=== PATIENT | male | born 1965 | race American Indian/Alaskan Native ===

== ENCOUNTER 2017-05-18 07:54 | Day surgery (SDC) | payer OTHER ==
--- NOTE | 2017-05-18 09:27 | Anesthesia Day of Surgery ---
Anesthesia Day of Surgery - Day of Surgery Patient Examined: Yes Patient H&P Reviewed: Yes Patient is NPO: Yes
--- NOTE | 2017-05-18 09:27 | Anesthesia Consultation ---
Anesthesia Consult and Med Hx Date of service: 05/18/17 - Airway Anesthetic Teeth Evaluation: Good ROM Head & Neck: Adequate Mental/Hyoid Distance: Adequate Mallampati Class: Class II Intubation Access Assessment: Probably Good - Pulmonary Exam CTA: Yes - Cardiac Exam Cardiac Exam: RRR - Pre-Operative Health Status ASA Pre-Surgery Classification: ASA2 Proposed Anesthetic Plan: General - Pulmonary Hx Smoking: Yes (1 PPD X 20 YRS) Hx Sleep Apnea: No (JOSE PRE SCREEN HIGH RISK) - Cardiovascular System Hx Hypertension: No - Endocrine Hx Non-Insulin Dependent Diabetes: No - Hematic Hx Sickle Cell Disease: No (SC TRAIT ONLY) - Other Systems Hx Substance Use: Yes (MARIJUANA 2-3 X PER WEEK) Hx Cancer: No
[2017-05-18] MEDS ORDERED: NACL BACTERIOSTATIC INFILTRATI ONE (09:43)
[2017-05-18] MEDS ORDERED: VERSED IV NR (10:00)
[2017-05-18] MEDS ORDERED: NEO SYNEPHRINE/NS Syringe(OR USE) IV ONE (10:00)
[2017-05-18] MEDS ORDERED: NACL 0.9% 1000 ML 1,000 ML IV SCH (10:00)
[2017-05-18] MEDS ORDERED: PEPCID PO NR (10:00)
[2017-05-18 10:11] LABS: Hematocrit 40.3 % (35.5-45.6); Hemoglobin 13.6 gm/dl (11.8-15.2)
[2017-05-18] MEDS ORDERED: DILAUDID IV PRN (10:30)
[2017-05-18] MEDS ORDERED: ANCEF/STERILE WATER 2 GM/20 ML IV NR (11:00)
[2017-05-18] MEDS ORDERED: DIPRIVAN 10 MG/ML IV ONE (11:08)
[2017-05-18] MEDS ORDERED: XYLOCAINE MPF 2% ONE (11:08)
[2017-05-18] MEDS ORDERED: DILAUDID ONE (11:09)
[2017-05-18] MEDS ORDERED: DECADRON ONE (11:33)
[2017-05-18] MEDS ORDERED: NACL 0.9% 1000 ML 1,000 ML ONE (11:57)
--- NOTE | 2017-05-18 12:06 | Short Stay Summary ---
Short Stay Documentation Date of service: 05/18/17 - History H&P: obtained from office - Allergies and Medications Current Medications: Allergies TB SKIN TEST Allergy (Uncoded 05/11/17 17:38) Rash Home Medications Medication Instructions Recorded Confirmed Last Taken Type Oxycodone HCl/Acetaminophen 1 each PO Q6HR PRN 05/18/17 05/18/17 05/17/17 History [Percocet 10/325 mg] Sulfamethoxazole/Trimethoprim 1 each PO BID 05/18/17 05/18/17 05/17/17 History [Bactrim DS TAB] Tamsulosin [Flomax] 0.4 mg PO QDAY 05/18/17 05/18/17 05/17/17 History Active Medications Cefazolin Sodium (Ancef/Sterile Water 2 Gm/20 Ml) 2 gm IV PREOP NR Stop: 05/19/17 10:59 Famotidine (Pepcid) 20 mg PO PREOP NR Stop: 05/18/17 21:00 Last Admin: 05/18/17 09:48 Dose: 20 mg Hydromorphone HCl (Dilaudid) 0.5 mg IV Q10MIN PRN PRN Reason: Pain , Severe (7-10) Stop: 05/18/17 18:00 Sodium Chloride (Nacl 0.9% 1000 Ml) 1,000 mls @ 100 mls/hr IV DIRECT NORBERT Last Admin: 05/18/17 09:50 Dose: 100 mls/hr Midazolam HCl (Versed) 2 mg IV PREOP NR Stop: 05/18/17 23:59 Last Admin: 05/18/17 10:08 Dose: 2 mg - Brief post op/procedure progress note Date of procedure: 05/18/17 Pre-op diagnosis: hematuria left renal stone Post-op diagnosis: same Procedure: left eswl Anesthesia: GETA Findings: good vus Surgeon: AMANDA MARX Estimated blood loss: minimal Pathology: none Condition: stable - Hospital course Hospital course: [facility]pac[facility]ome - Disposition Condition at discharge: Good Disposition: DC-01 TO HOME OR SELFCARE Short Stay Discharge Plan Follow up with: PRIMARY CARE, [Primary Care Provider] - 7 Days
[2017-05-18] MEDS ORDERED: WATER FOR IRRIG STERILE IR ONE (12:14)
--- NOTE | 2017-05-18 13:31 | Post Operative Note ---
Date of procedure: 05/18/17 Pre-op diagnosis: hematuria left stone Post-op diagnosis: same Findings: good vis, lg lat and med lobe Procedure: left eswl cysto Anesthesia: ASTERA Surgeon: AMANDA MARX Estimated blood loss: minimal Pathology: none Condition: stable Disposition: PACU
[2017-05-18 14:32] VITALS: BP 178/68
--- NOTE | 2017-05-18 17:23 | Post Anesthesia Evaluation ---
- Post Anesthesia Evaluation Patient Participated: Yes Airway Patent: Yes Stable Respiratory Function: Yes Nausea/Vomiting: No Temp > 96.8F: Yes Pain Manageable: Yes Adequeate Hydration: Yes Anesthesia Complications: No
--- NOTE | 2017-05-22 02:06 | Operative Report ---
PREOPERATIVE DIAGNOSES: Left renal stone and hematuria. POSTOPERATIVE DIAGNOSES: Left renal stone and hematuria. PROCEDURE: 1. Left renal ESWL. 2. Left cystoscopy. SURGEON: Tuan Dave MD ANESTHESIA: General. SPECIMENS: None. ESTIMATED BLOOD LOSS: Minimal. COMPLICATIONS: None. FINDINGS: Good visualization. IMPLANTS: None. CLINICAL INDICATIONS: Counseled RCBA, antibiotics, SCDs, wanted to proceed, understanding the procedure, antibiotics, SCDs. DESCRIPTION OF PROCEDURE: The patient was transferred to OR suite in supine position, anesthesia begun, biplanar fluoroscopy was used to target the stone with an F2, but before this, a flexible cystoscope was assembled and passed this from the urethra. The flexible cystoscope demonstrated normal penile urethra, bulbar urethra, prostatic urethra, had large lateral lobes. Upon entering the bladder, there was a large median lobe, unable to clearly see the UOs. Cystoscopy with the flexible scope demonstrated no obvious tumors with the prostate limitations of large prostate in the bladder, but there is no obvious tumor on inspection. No tumors or lesions. At this point, the scope was withdrawn. The bladder was drained with an in and out catheter. At this point, the left stone was targeted with an F2. A total of 2500 shocks were delivered with intermittent repositioning done as necessary. At the end of the procedure, there was decreased density of the left stone and the patient was awakened and transferred to PACU in good and stable condition. JOB# [id number] ATS/NTS
== END 2017-05-18 14:05 | disposition home or self-care (01) ==
LOC: OR 07:54
PROVIDERS: ATTEND Urology
DX: N20.0 Calculus of kidney (principal); N40.0 Benign prostatic hyperplasia without lower urinary tract symptoms; F17.210 Nicotine dependence, cigarettes, uncomplicated; F12.90 Cannabis use, unspecified, uncomplicated; D57.3 Sickle-cell trait; I10 Essential (primary) hypertension; Z79.899 Other long term (current) drug therapy; Z88.8 Allergy status to other drugs, medicaments and biological substances
CPT/HCPCS: 36415; 50590; 52000; 85014; 85018; A4217; J0690; J1100; J1170; J2250; J2370; J2704; J7030